=== PATIENT | female | born 1995 | race Two or more races ===

== ENCOUNTER 2021-09-19 17:14 | Emergency (ER) | payer BC ==
[~2021-09-19] VITALS: Ht 165.1 cm; Wt 114.0 kg
[2021-09-19 17:35] VITALS: BP 156/100
[2021-09-19 18:01] LABS: CLARITY,URINE CLOUDY (Clear); COLOR,URINE YELLOW (Yellow); GLUCOSE, URINE NEGATIVE (Neg); KETONES,URINE NEGATIVE (Neg); LEUKOCYTE ESTERASE ,URINE NEGATIVE (Neg); NITRITES, URINE NEGATIVE (Neg); OCCULT BLOOD,URINE LARGE (Neg); PH,URINE 6.5 (4.8-8.0); PROTEIN,URINE TRACE mg/dl (Neg); UROBILINOGEN,URINE 0.2 E.U/dL (0.2-1.0)
[2021-09-19 18:02] LABS: UA COLLECTION TYPE NON-SPECIFIED
[2021-09-19 18:07] LABS: MUCUS STRANDS FEW /LPF (Neg); RENAL CELLS, URINE FEW /HPF; SQUAMOUS EPITHELIAL CELL,UR FEW /LPF (FEW)
[2021-09-19 18:09] LABS: BACTERIA,URINE FEW /HPF (Neg); RBC,URINE TNTC /HPF (0-2)
[2021-09-19 18:10] LABS: URINE HCG NEGATIVE (NEG)
[2021-09-19 18:11] LABS: WBC,URINE 0-4 /HPF (0-4)
[2021-09-19] MEDS ORDERED: normal saline 1000ml 1,000 ML IV ONE (19:20)
[2021-09-19] MEDS ORDERED: morphine 4 MG/ML inj SYRINge IV ONE (19:20)
[2021-09-19] MEDS ORDERED: ketorolac tromethamine 15mg/ml inj. IV ONE (19:20)
[2021-09-19] MEDS ORDERED: ondansetron/PF 4mg/2ml inj IV ONE (19:20)
[2021-09-19] MEDS ORDERED: famotidine 20mg tablet PO ONE (19:45)
[2021-09-19 19:58] LABS: BASOPHILS % (AUTO) 0.1 % (0-1); EOSINOPHILS % (AUTO) 0 % (0-6); HEMATOCRIT 38.4 % (35.0-45.0); HEMOGLOBIN 12.9 g/dl (12.0-16.0); LYMPHOCYTES # (AUTO) 4.8 X10'3 (1.1-4.8); MEAN CORPUSCULAR HEMOGLOBIN 29.4 PG (27.0-31.0); MEAN CORPUSCULAR HGB CONC 33.6 g/dL (33.0-36.5); MEAN CORPUSCULAR VOLUME 87.3 FL (78-98); MONOCYTES # (AUTO) 1.5 X10'3 (0-0.9); MONOCYTES % (AUTO) 7.2 % (2-12); NEUTROPHILS # (AUTO) 14.4 X10'3 (1.8-7.7); NEUTROPHILS % (AUTO) 69.7 % (42-75); PLATELET COUNT 310 X10'3 (140-440); WHITE BLOOD COUNT 20.7 X10'3 (4.5-11.0)
[2021-09-19 20:16] LABS: ALANINE AMINOTRANSFERASE 53 U/L (12-78); ALBUMIN 3.3 G/DL (3.4-5.0); ALBUMIN/GLOBULIN RATIO 0.8 (1.1-1.5); ALKALINE PHOSPHATASE 78 IU/L (46-116); ANION GAP 10 (8-16); ASPARTATE AMINO TRANSFERASE 17 U/L (10-37); BILIRUBIN,TOTAL 0.4 MG/DL (0.1-1.0); BLOOD UREA NITROGEN 24 MG/DL (7-18); BUN/CREATININE RATIO 21.6 (6.6-38.0); CALCIUM 8.3 MG/DL (8.5-10.1); CHLORIDE 109 MMOL/L (99-107); CREATININE 1.11 MG/DL (0.40-0.90); GLUCOSE 121 MG/DL (70-104); LIPASE 203 U/L (73-393); POTASSIUM 3.5 MMOL/L (3.5-5.1); SODIUM 142 MMOL/L (135-145); TOTAL CARBON DIOXIDE 23.4 MMOL/L (24-32); TOTAL PROTEIN 7.2 G/DL (6.4-8.2); eGFR 60 ML/MIN
[2021-09-19] MEDS ORDERED: ondansetron 4mg rapidly disintigrating tab PO ONE (20:35)
[2021-09-19] MEDS ORDERED: oxyCODONE IR 5mg (immed. release) tablet PO ONE (20:35)
[2021-09-19] MEDS ORDERED: ONDA4TAB12 PO (20:43)
== END 2021-09-19 20:53 | disposition home or self-care (01) ==
LOC: ER 17:16
DX: E86.0 Dehydration (principal); M54.50 Low back pain, unspecified; R10.9 Unspecified abdominal pain; R20.0 Anesthesia of skin; H53.8 Other visual disturbances; R11.2 Nausea with vomiting, unspecified; G35 Multiple sclerosis; Z79.2 Long term (current) use of antibiotics
CPT/HCPCS: 36415; 80053; 81001; 81025; 83690; 85025; 96361; 96374; 96375; 99284; J1885; J2270; J2405; J7030

== ENCOUNTER 2025-01-05 04:41 | Emergency (ER) | payer BC ==
[~2025-01-05] VITALS: Ht 165.1 cm; Wt 96.8 kg
[~2025-01-05 04:41] MED LIST: ONDA-243 PO
--- NOTE | 2025-01-05 05:00 | Physician Documentation ---
History of Present Illness Chief Complaint: Flank Pain Stated Complaint: FLANK PAIN Time Seen by MD: 04:54 Primary Medical Doctor: [facility] HPI This is a very pleasant 29-year-old female with a known history of kidney stone several years ago, presents for evaluation of a severe waxing and waning sharp pain in her right flank. She had gone to see her primary care provider who presumptively diagnosed her with a kidneys,, obtain urine sample. They did a urine culture and apparently it was negative for bacterial infection minor head some blood in urine. The patient admitted to gross hematuria several days ago with the onset of pain. The palliating or aggravating factors for the pain. She has received referral for outpatient CT from her PCP, but states it takes for it with the [facility] now. She states that the pain got worse today. It was not accompanied by severe nausea and vomiting. She has a attempted to treat it by taking [place] but only vomited it up. She denies any chance of being . Does not recall her last menstrual period. She denies use of tobacco, alcohol or illicit substances Medication Reconciliation Allergies: Coded Allergies: cephalexin (Verified Allergy, Severe, hives, 01/05/25) Scheduled ONDANSETRON ODT 4mg tablet (Ondansetron Odt), 1 TABLET PO Q6H Scheduled PRN ONDANSETRON ODT 4mg tablet (Ondansetron Odt), 1 TAB PO Q6H PRN PRN for nausea/vomiting Past Medical History Past Medical History: *MUSCULOSKELETAL* Past Surgical History: no surgical history Alcohol Use: None Drug Use: none Lives In: Home Review of Systems ROS 10 point review of systems was performed and unless noted above in HPI is n egative for acute process/complaint. Physical Exam Vital Signs: Temperature: 97.7, Source: Temporal, Heart Rate: 86, Respiratory Rate: 20, BP: 139/88, Pulse Oximetry: 100, Weight: 96.800 Physical Exam GENERAL: Awake, alert, oriented, GCS 15, no apparent distress, uncomfortable appearing, answers questions, follows commands appropriately. Examined in triage, placed in bed 2. HEENT: Atraumatic, normocephalic, pupils equal, extraocular muscles intact, sclerae anicteric, mucus membranes moist, oropharynx is clear, no stridor. NECK: supple, full active range of motion, trachea midline, no thyromegaly, no lymphadenopathy, no JVD. CARDIOVASCULAR: regular rate/rhythm, no murmurs/gallops/rubs, Pulses are 2+ in all extremities and symmetric. Capillary refill less than 2 seconds. PULMONARY: Nonlabored, good air movement ,no respiratory distress, speaking in full sentences, clear to auscultation bilaterally, no wheezing, no ronchi, no rales, no accessory muscle use. GASTROINTESTINAL: Soft, non-tender, non-distended, normal active bowel sounds, no organomegaly, no pulsatile masses, no CVA tenderness. NEUROLOGIC: Lucid with normal mental status. Normal facial symmetry. Moves all extremities symmetrically and with purpose. No truncal ataxia. Speech is fluid without evidence of dysarthria or aphasia, no focal deficits appreciated. MUSCULOSKELETAL: There is full range of motion of all extremities. There is no joint pain or joint swelling or joint erythema. There is no muscle pain or tenderness or swelling. EXTREMITIES: warm, well-perfused, no cyanosis, no clubbing, no edema, no acute deformities. Skin: warm, dry, no rashes or lesions, no jaundice, no petechiae orpurpura. No ecchymosis. PSYCHIATRIC: Normal affect, normal insight, normal concentration. Focused exam: [] Progress Results/Orders Results/Orders Vital Signs 01/05/25 04:49 Temp 97.7 Pulse 86 Resp 20 B/P (MAP) 139/88 Pulse Ox 100 Medical Decision Making Additional information obtaine: N/A Findings Facility Status: ED Holds, [facility] process The plan was discussed with the patient, who demonstrates clear understanding of the plan and is in agreement with the plan unless otherwise noted in the chart. All questions have been answered, all concerns were addressed unless otherwise documented. I was available throughout their ED stay for frequent reassessment and que stions. Differential Diagnoses (considered and possible or likely): [Differential toby gnosis considered includes renal colic, infected stone, pyelonephritis, acute appendicitis, acute cholecystitis, pancreatitis, gastritis, PUD, diverticulitis, mesenteric ischemia, abdominal aortic aneurysm, bowel obstruction, enteritis, colitis, fecal impaction, volvulus, IBS, inflammatory bowel disease, specific food intolerance, peritonitis, perforated viscous, malignancy, UTI, abscess, and abdominal pain NOS. Pelvic source of pain was also considered including endometritis, dysmenorrhea, ovarian cyst, ovarian torsion, PID, TOA, cervicitis, vaginitis, or uterine fibroid. History, physical exam, and workup exclude many of the more serious causes listed above. ] ??Differential Diagnoses (considered and unlikely, not requiring evaluation currently): [No evidence of trauma] MDM Data Please see HPI for the following: Independent Historians and external Records Review. Historian: [Patient] Independent Historians: ?[None] Medication Management: [Reviewed medication list] Social History and determinants: [Reviewed] Please see the body of the note for the following: Any independent interpretations of ECG, imaging studies. All vitals signs/haemodynamics, ordered tests were independently reviewed and interpreted by myself. Nursing triage complaint and vitals reviewed, additional nursing notes were reviewed as available and I agree unless otherwise noted or documented in contradiction in the chart Vital Signs: Independently reviewed Labs: Independently interpreted Imaging: Independently interpreted Old Medical Records: Independently reviewed, see [facility] for relevant summary and information Additionally notably showing: [] Tests considered but not ordered include: [Ultrasound has been considerably but CT is a bear modality for diagnostic kidney stones.] Social Determinants of Health Impact: Patient was evaluated in [facility], or [facility] [place] to healthcare due to below par ratio of patient to medical providers. [] Comorbid Conditions Impacting Present Evaluation and Care/Treatment: [History of kidney stones] Management Discussions with other Healthcare Providers: [] Treatment and Disposition Medication Management (Given or considered): [Multimodal pain management]. See EMR for details Consideration for Hospitalization/Escalation/Deescalation of Care: Admission for observation has been considered, [however the patient is able to tolerate p.o., their symptoms are controlled, they are able to rely on oral medications, and their chief complaint/diagnosis can be managed on outpatient basis.] ?ED Course:?[] ?Shared decision making:?[] Code status:?FULL Please see the full Electronic Medical Record for full details of nursing documentation, medications list, other records of complete past medical history and conditions, vital signs, laboratory studies, and any radiologic study interpretations by radiologists. Portions of this note were completed using [employer] dictation software and as a result there may exist minor errors in spelling. I have reviewed elements of past family and social history and agree as included in note. Differential Dx:Considerations: Other (See the body of main note for differential diagnosis) Addendum Sign-out note I received sign-out on this patient at shift change. Briefly: She presents with flank pain and a history of kidney stones. Pending urinalysis and CT scan. I reviewed her laboratory workup, which shows normal kidney function, and urinalysis with hematuria but no evidence of infection. I personally interpreted the CT scan, and this shows a 3 mm kidney stone, no other complication 10:00 a.m.: Re-evaluation: The patient is resting comfortably in bed. She denies any pain at this time. I discussed the results of her testing with the patient and her mother. She feels comfortable going home at this time. She will be given a prescription for Zofran and will take ibuprofen and Tylenol. Return precautions given. Wilfrido Mejia MD Departure Time of Disposition: 09:56 Disposition: 01 HOME / SELF CARE / HOMELESS Impression: Primary Impression: Right flank pain Additional Impression: Kidney stone Condition: Improved Discharge Instructions: Renal Colic Referrals: NO PRIMARY CARE PROVIDER (PCP) Prescriptions ONDANSETRON ODT 4mg tablet (ONDANSETRON ODT) 4 Mg Tab.rapdis 1 TAB PO Q6H PRN PRN for nausea/vomiting for 4 Days, #16 TAB 0 Refills Prov: WILFRIDO MEJIA MD 01/05/25 Education Educated: Patient, Family Educated regarding: diagnosis, treatment, need for follow up Signature Scribe Signature: No scribe Attestation: Date: Jan 05, 2025 Time: 04:59This note accurately reflects clinical decisions, work performed by myself, DO SAMUEL Harris NICHOLAS M DO Jan 05, 2025 05:00 WILFRIDO MEJIA MD Jan 05, 2025 08:03
[2025-01-05] MEDS: normal saline 1000ml 1,000 ML IV ONE (05:12)
[2025-01-05] MEDS: ketorolac trometh 30MG/ML vial 30 MG/ML VIAL IV ONE (05:15)
[2025-01-05] MEDS: morphine 4 MG/ML inj SYRINge IV ONE (05:16)
[2025-01-05 05:26] LABS: MEAN PLATELET VOLUME 7.5 FL (7.4-10.4); RED CELL DISTRIBUTION WIDTH 13.4 % (11.5-14.5)
[2025-01-05 05:37] LABS: HCG SERUM QL NEGATIVE
[2025-01-05 05:45] LABS: CREATININE 0.98 MG/DL (0.40-0.90); TOTAL CARBON DIOXIDE 24.9 MMOL/L (24-32); eCRCL 77 ML/MIN; eGFR 68 ML/MIN
[2025-01-05 07:45] LABS: LEUKOCYTE ESTERASE ,URINE TRACE (Neg); NITRITES, URINE NEGATIVE (Neg); OCCULT BLOOD,URINE LARGE (Neg)
[2025-01-05 07:52] LABS: UA COLLECTION TYPE CLN CATCH MIDSTREAM
[2025-01-05 07:53] LABS: MUCUS STRANDS FEW /LPF (Neg); SQUAMOUS EPITHELIAL CELL,UR FEW /LPF (FEW); URINE AMPHETAMINE SCREEN NEGATIVE (Neg); URINE BARBITUATE SCREEN NEGATIVE (Neg); URINE BENZODIAZEPINES SCREEN NEGATIVE (Neg); URINE CANNABINOID SCREEN NEGATIVE (Neg); URINE COCAINE SCREEN NEGATIVE (Neg); URINE METHADONE SCREEN NEGATIVE (Neg); URINE OPIATE SCREEN POSITIVE (Neg); URINE PHENCYCLIDINE SCREEN NEGATIVE (Neg)
[2025-01-05] MEDS ORDERED: iohexol 300mg/ml 100ml inj. ONE (08:41)
--- NOTE | 2025-01-05 09:40 | RADIOLOGY REPORT ---
Exam: CT CT ABDOMEN PELVIS W/ IV CONTRAST History: Right flank pain Comparison Study: None TECHNIQUE: Multidetector CT of the abdomen was performed from lung bases to pubic symphysis. Imaging was performed without IV contrast. Axial, coronal and sagittal multiplanar reformats were obtained from the axial data set by the technologist. Radiation Dose Information: Dose-length product is 1606 mGy*cm FINDINGS: Limited sections of the lung bases demonstrate no focal pulmonary mass. The liver, spleen, pancreas, and both adrenal glands demonstrate no acute findings. Hepatomegaly to 19.5 cm The gallbladder is unremarkable. The stomach is unremarkable. The small bowel loops are not dilated. The appendix is normal. No colonic obstruction. 3 mm obstructive stone at the proximal right ureter with associated mild hydroureteronephrosis. left kidney is unremarkable. The urinary bladder is distended. No significant lymphadenopathy. No free air or free fluid. The aorta and IVC demonstrate no acute findings. Visualized osseous structures demonstrate no acute abnormality. IMPRESSION: 1. 3 mm obstructive stone at the proximal right ureter with associated mild hydroureteronephrosis. 2. Hepatomegaly.
[2025-01-05] MEDS ORDERED: ONDA-243 PO (09:57)
[2025-01-05 10:05] VITALS: BP 128/72; PULSE 78; RESP 16; TEMP 98.5; O2SAT 99
== END 2025-01-05 10:07 | disposition home or self-care (01) ==
LOC: ER 04:41
DX: N20.0 Calculus of kidney (principal); Z87.442 Personal history of urinary calculi; Z88.1 Allergy status to other antibiotic agents; Z79.899 Other long term (current) drug therapy
CPT/HCPCS: 36415; 74177; 80053; 80305; 81001; 83690; 83735; 84703; 85025; 87088; 96361; 96374; 96375; 99285; J0780; J1885; J2270; J7030; Q9967